=== PATIENT | male | born 1950 | race Caucasian/White ===

== ENCOUNTER → 2018-06-03 09:16 | Outpatient (CLI) | payer BC, SELFPAY ==
[2018-06-03 11:21] LABS: Abs Immature Grans 0.01 k/cumm (0.0-0.09); Absolute Basophil Count 0.04 k/cumm (0.0-0.2); Absolute Eosinophil Count 0.12 k/cumm (0.0-0.7); Absolute Monocyte Count 0.51 k/cumm (0.11-0.7); Absolute Neutrophil Count 1.89 k/cumm (1.2-6.7); Eosinophils % 2.9; Immature Grans % 0.2; Lymphocytes % 36.9; Mean Corp. HGB Concentration 34.1 g/dL (32.0-36.0); Mean Corpuscular Hemoglobin 31.8 pg (27.0-33.0); Mean Corpuscular Volume 93.4 fL (80-95); Mean Platelet Volume 9.8 fL (8.0-11.0); Monocytes % 12.5; Neutrophils % 46.5; Platelet Count 219 x1000/uL (130-400); RBC 4.71 m/cumm (4.50-6.00); RBC Distribution Width 13.3 % (11.8-14.1); White Blood Cell Count 4.07 k/cumm (4.4-10.8)
[2018-06-03 11:33] LABS: ALT 26 U/L (12-78); AST 20 U/L (15-37); Albumin 3.9 g/dL (3.4-5.0); Alkaline Phosphatase 44 U/L (46-116); Anion Gap 7.5 mmol/L (3-11); BUN 20 mg/dL (7-18); Bilirubin, Total 0.5 mg/dL (0.2-1.0); CO2 27.5 mmol/L (21.0-32.0); CREATININE 1.02 mg/dL (0.70-1.30); Calcium 9.3 mg/dL (8.5-10.1); Chloride 104 mmol/L (98-107); Glucose 93 mg/dL (70-100); Potassium 4.4 mmol/L (3.5-5.1); Sodium 139 mmol/L (136-145); Total Protein 7.1 g/dL (6.4-8.2)
== END ==
PROVIDERS: PCP Family Medicine; Visit Provider Internal Medicine
DX: D64.9 Anemia, unspecified (principal); R30.0 Dysuria; R35.0 Frequency of micturition
CPT/HCPCS: 36415; 80053; 84154; 85025; 87086

== ENCOUNTER 2018-06-19 09:52 | Emergency (ER) | payer BC, SELFPAY ==
[2018-06-19 10:08] VITALS: BP 98/63; PULSE 89; RESP 16; TEMP 37.1; O2SAT 94
[2018-06-19 10:36] LABS: Bilirubin Negative (Negative); Blood Negative (Negative); Clarity Clear; Glucose Negative (Negative); Ketones Negative (Negative); Leukocyte Esterase Negative (Negative); Nitrite Negative (Negative); Specific Gravity 1.015 (1.005-1.025); Urobilinogen 0.2 EU/dL (Up TO 0.2)
--- NOTE | 2018-06-19 11:07 | ED.GENADUL ---
Disposition Clinical Impression: Enlarged prostate, Bladder distension Disposition: HOME Condition: Fair Instructions: Benign Prostatic Hypertrophy (ED), Montesinos Catheter Placement and Care (ED) Additional Instructions: Encourage hydration. Keep catheter in until evaluated by urology. Please follow nursing instructions on how to clean and care for the catheter. Appointment 06/25/18 at 1pm with urology. If you develop fever/chills, increased pain, or the other new/worsening symptoms please seek care urgently once again. You may use Benadryl to help with the rash from Bactrim. Please discuss allergic reaction with primary care. Referrals: Abimael Hoffman MD [ [facility] STAFF PHYSICIAN] - Medical Decision Making - Lab Data Laboratory Tests 06/19/18 10:25 Urine Color Yellow Urine Clarity Clear Urine pH 7.0 Ur Specific [place] 1.015 Urine Protein Negative Urine Ketones Negative Urine Blood Negative Urine Nitrite Negative Urine Bilirubin Negative Urine Urobilinogen 0.2 Ur Leukocyte Esterase Negative Urine Glucose Negative Results reviewed for labs ordered during visit: Yes - Medical Decision Making Patient presents today with chief complaint of difficulty urinating. Nursing staff performed a bladder scan and found over 999 mL of urine in his bladder. On exam, he is noted to have an enlarged prostate. It is firm, no bogginess noted. No discomfort with palpation of the prostate. Patient is afebrile and appears nontoxic. He does have a diffuse erythematous rash on the abdomen which she reports was there when taking the Bactrim previously and recurred after the one-time dosing last night. Advised against taking Bactrim in the future. I did advise he needs to contact his primary care if he finds that he needs to stop medication prematurely in the future. Catheter will be placed. We discussed that he likely has a stretch injury and he needs to allow this to heal. Patient will be referred to urology. We will obtain a urinalysis to evaluate for infection. Discussed this plan with the patient who is in agreement. 1800 cc out with catheter placement. Patient is feeling much improved. Abdomen is no longer noted to be distended. Urinalysis is not suspicious for infection. Discussed these findings with the patient. Advised that secondary to his enlarged prostate he seems to have retained urine and has developed a stretch injury. Advised that he needs follow-up with urology. We were able to make an appointment with urology for next week. Nursing staff instructed on how to care for catheter. He was given both a [place] bag and a leg bag. We discussed signs symptoms of infection when to seek care urgently once again. All his questions and concerns were addressed and he is in agreement this plan. We discussed pathology and expected course. History of Present Illness - General Chief complaint: Urinary Stated complaint: PROSTRATE ISSUES/MEDS Time Seen by Provider: 06/19/18 11:07 Source: patient, family, RN notes reviewed Mode of arrival: ambulatory Limitations: no limitations - History of Present Illness Initial comments: Patient is 67-year-old male, accompanied by , with chief complaint of difficulty urinating. He reports that this is been a long-standing issue this progressively been worsening. Patient was seen by primary care recently and placed on Bactrim. He reports he had had a reaction to Bactrim including tingling, rash and just feeling poorly. Stopped Bactrim. Did not contact primary care. Reports has been approximately 1 week since stopping the Bactrim. He states that the daytime symptoms had improved slightly. However, nighttime dysuria, urgency and frequency have persisted. He feels that he has great difficulty with urination, particularly at night. Reports that even this morning however he has been having difficulty with urination. Feels that he is at times unable to urinate. States that other times he is able to get a very small amount. Feels that he is having some abdominal discomfort. Had a normal bowel movement last night with no discomfort. He denies any fevers. States that he has gotten chills but only after taking the Bactrim. Feels that this is drug related. Did vomit ?1 last night but again, this is shortly after taking oral Bactrim. Patient did take a one-time dose of the Bactrim last night and then developed recurrence of his previous symptoms. - Related Data Diclofenac Sodium 75 mg PO BID PRN #60 tab-cap 02/20/18 Allergies Allergy/AdvReac Type Severity Reaction Status Date / Time sulfamethoxazole AdvReac Intermediate Skin Rash Unverified 06/19/18 11:46 [From Bactrim] trimethoprim [From Bactrim] AdvReac Intermediate Skin Rash Unverified 06/19/18 11:46 Review of Systems Constitutional: no symptoms reported. denies: chills, fever Respiratory: no symptoms reported. denies: cough, shortness of breath Cardiovascular: denies: chest pain, palpitations Gastrointestinal: as per HPI Genitourinary: as per HPI Musculoskeletal: denies: back pain Skin: denies: rash, lesions Neurological: denies: headache Past Medical History - Past Medical History Medical history: no medical history - Social History Alcohol use: none Drug use: none General Exam - General Limitations: no limitations General appearance: alert, in no apparent distress - Eye Eye exam: Present: normal apperance - Respiratory Respiratory exam: Present: normal lung sounds bilaterally. Absent: respiratory distress - Cardiovascular Cardiovascular Exam: Present: regular rate, normal rhythm, normal heart sounds - GI/Abdominal GI/Abdominal exam: Present: soft, distended (lower abdomen is noted to be slightly distended, bladder is palpable. ), normal bowel sounds, organomegaly (as above). Absent: tenderness, guarding, rebound, rigid - Rectal Rectal exam: Present: normal inspection, normal rectal tone, heme (-) stool, hemorrhoids (exernal, noon thrombosed), prostate enlargement. Absent: mass, tenderness, normal prostate, prostate tenderness - exam: Present: normal inspection - Back Exam Back exam: Absent: CVA tenderness (R), CVA tenderness (L) - Neurological Exam Neurological exam: Present: alert, normal gait - Psychiatric Psychiatric exam: Present: normal affect, normal mood - Skin Skin exam: Present: warm, dry, intact Course Vital Signs - 24 hr 06/19/18 10:08 Temperature 37.1 C Pulse 89 Respiratory 16 Rate Blood Pressure 98/63 Pulse Oximetry 94 L
--- NOTE | 2018-06-19 11:13 | ED.GENADUL_ITS ---
Disposition Clinical Impression: Enlarged prostate, Bladder distension Disposition: HOME Condition: Fair Instructions: Benign Prostatic Hypertrophy (ED), Montesinos Catheter Placement and Care (ED) Additional Instructions: Encourage hydration. Keep catheter in until evaluated by urology. Please follow nursing instructions on how to clean and care for the catheter. Appointment 06/25/18 at 1pm with urology. If you develop fever/chills, increased pain, or the other new/worsening symptoms please seek care urgently once again. You may use Benadryl to help with the rash from Bactrim. Please discuss allergic reaction with primary care. Referrals: Abimael Hoffman MD [ [facility] STAFF PHYSICIAN] - Medical Decision Making - Lab Data Laboratory Tests 06/19/18 10:25 Urine Color Yellow Urine Clarity Clear Urine pH 7.0 Ur Specific [place] 1.015 Urine Protein Negative Urine Ketones Negative Urine Blood Negative Urine Nitrite Negative Urine Bilirubin Negative Urine Urobilinogen 0.2 Ur Leukocyte Esterase Negative Urine Glucose Negative Results reviewed for labs ordered during visit: Yes - Medical Decision Making Patient presents today with chief complaint of difficulty urinating. Nursing staff performed a bladder scan and found over 999 mL of urine in his bladder. On exam, he is noted to have an enlarged prostate. It is firm, no bogginess noted. No discomfort with palpation of the prostate. Patient is afebrile and appears nontoxic. He does have a diffuse erythematous rash on the abdomen which she reports was there when taking the Bactrim previously and recurred after the one-time dosing last night. Advised against taking Bactrim in the future. I did advise he needs to contact his primary care if he finds that he needs to stop medication prematurely in the future. Catheter will be placed. We discussed that he likely has a stretch injury and he needs to allow this to heal. Patient will be referred to urology. We will obtain a urinalysis to evaluate for infection. Discussed this plan with the patient who is in agreement. 1800 cc out with catheter placement. Patient is feeling much improved. Abdomen is no longer noted to be distended. Urinalysis is not suspicious for infection. Discussed these findings with the patient. Advised that secondary to his enlarged prostate he seems to have retained urine and has developed a stretch injury. Advised that he needs follow -up with urology. We were able to make an appointment with urology for next week. Nursing staff instructed on how to care for catheter. He was given both a [place] bag and a leg bag. We discussed signs symptoms of infection when to seek care urgently once again. All his questions and concerns were addressed and he is in agreement this plan. We discussed pathology and expected course. History of Present Illness - General Chief complaint: Urinary Stated complaint: PROSTRATE ISSUES/MEDS Time Seen by Provider: 06/19/18 11:07 Source: patient, family, RN notes reviewed Mode of arrival: ambulatory Limitations: no limitations - History of Present Illness Initial comments: Patient is 67-year-old male, accompanied by , with chief complaint of difficulty urinating. He reports that this is been a long-standing issue this progressively been worsening. Patient was seen by primary care recently and placed on Bactrim. He reports he had had a reaction to Bactrim including tingling, rash and just feeling poorly. Stopped Bactrim. Did not contact primary care. Reports has been approximately 1 week since stopping the Bactrim. He states that the daytime symptoms had improved slightly. However, nighttime dysuria, urgency and frequency have persisted. He feels that he has great difficulty with urination, particularly at night. Reports that even this morning however he has been having difficulty with urination. Feels that he is at times unable to urinate. States that other times he is able to get a very small amount. Feels that he is having some abdominal discomfort. Had a normal bowel movement last night with no discomfort. He denies any fevers. States that he has gotten chills but only after taking the Bactrim. Feels that this is drug related. Did vomit 1 last night but again, this is shortly after taking oral Bactrim. Patient did take a one-time dose of the Bactrim last night and then developed recurrence of his previous symptoms. - Related Data Diclofenac Sodium 75 mg PO BID PRN #60 tab-cap 02/20/18 Allergies Allergy/AdvReac Type Severity Reaction Status Date / Time sulfamethoxazole AdvReac Intermediate Skin Rash Unverified 06/19/18 11:46 [From Bactrim] trimethoprim [From Bactrim] AdvReac Intermediate Skin Rash Unverified 06/19/18 11:46 Review of Systems Constitutional: no symptoms reported. denies: chills, fever Respiratory: no symptoms reported. denies: cough, shortness of breath Cardiovascular: denies: chest pain, palpitations Gastrointestinal: as per HPI Genitourinary: as per HPI Musculoskeletal: denies: back pain Skin: denies: rash, lesions Neurological: denies: headache Past Medical History - Past Medical History Medical history: no medical history - Social History Alcohol use: none Drug use: none General Exam - General Limitations: no limitations General appearance: alert, in no apparent distress - Eye Eye exam: Present: normal apperance - Respiratory Respiratory exam: Present: normal lung sounds bilaterally. Absent: respiratory distress - Cardiovascular Cardiovascular Exam: Present: regular rate, normal rhythm, normal heart sounds - GI/Abdominal GI/Abdominal exam: Present: soft, distended (lower abdomen is noted to be slightly distended, bladder is palpable. ), normal bowel sounds, organomegaly ( as above). Absent: tenderness, guarding, rebound, rigid - Rectal Rectal exam: Present: normal inspection, normal rectal tone, heme (-) stool, hemorrhoids (exernal, noon thrombosed), prostate enlargement. Absent: mass, tenderness, normal prostate, prostate tenderness - exam: Present: normal inspection - Back Exam Back exam: Absent: CVA tenderness (R), CVA tenderness (L) - Neurological Exam Neurological exam: Present: alert, normal gait - Psychiatric Psychiatric exam: Present: normal affect, normal mood - Skin Skin exam: Present: warm, dry, intact Course Vital Signs - 24 hr 06/19/18 10:08 Temperature 37.1 C Pulse 89 Respiratory 16 Rate Blood Pressure 98/63 Pulse Oximetry 94 L
[2018-06-19 12:05] VITALS: BP 95/53; PULSE 86; RESP 14; TEMP 36.5; O2SAT 98
== END 2018-06-19 12:06 | disposition home or self-care (01) ==
PROVIDERS: Emergency Provider Physician Assistant; PCP Family Medicine
DX: N40.1 Benign prostatic hyperplasia with lower urinary tract symptoms (principal); R35.0 Frequency of micturition; R39.15 Urgency of urination; R30.0 Dysuria; N32.89 Other specified disorders of bladder
CPT/HCPCS: 99282; 81003

== ENCOUNTER 2019-03-05 08:51 | Outpatient (CLI) | payer OTHER, MEDICARE, SELFPAY ==
[2019-03-05 11:30] LABS: Anion Gap 4.3 mmol/L (3-11); BUN 15 mg/dL (7-18); CO2 31.7 mmol/L (21.0-32.0); CREATININE 0.98 mg/dL (0.70-1.30); Chloride 104 mmol/L (98-107); Cholesterol 184 mg/dL (50-200); Glucose 96 mg/dL (70-100); HDL Cholesterol 64 mg/dL (40-60); LDL CHOLESTEROL 111 mg/dL (<100); Potassium 5.2 mmol/L (3.5-5.1); Sodium 140 mmol/L (136-145); Triglyceride 28 mg/dL (30-150)
[2019-03-06 10:12] LABS: PSA, Screening 1.6 ng/ml (0-4.5)
== END 2019-03-05 09:11 ==
PROVIDERS: PCP Family Medicine; Visit Provider Family Medicine
DX: Z00.00 Encounter for general adult medical examination without abnormal findings (principal); Z13.220 Encounter for screening for lipoid disorders; Z12.5 Encounter for screening for malignant neoplasm of prostate
CPT/HCPCS: 36415; 80048; 80061; 83721; 84153

== ENCOUNTER 2019-03-13 02:08 | Outpatient (CLI) | payer OTHER, MEDICARE, SELFPAY ==
[2019-03-13 08:23] LABS: Potassium 5.1 mmol/L (3.5-5.1)
== END 2019-03-13 02:28 ==
PROVIDERS: PCP Family Medicine; Visit Provider Family Medicine
DX: E87.5 Hyperkalemia (principal)
CPT/HCPCS: 36415; 84132

== ENCOUNTER 2019-06-16 07:06 | Day surgery (SDC) | payer OTHER, SELFPAY ==
--- NOTE | 2019-06-16 06:42 | W.COLOREPORT ---
Date of service: 06/16/19 Time of Service: 08:20 Colonoscopy Report Date of procedure: 06/16/19 Pre-op diagnosis general: Colon Cancer Screening Post-op diagnosis procedure note: other (Severe diverticulosis) Procedure: Colonoscopy Surgeon: Ashia Dsouza Anesthesia proc note operative: other (General/ ASA 2/ Edward Iqbal CRNA) Estimated blood loss (mL): 0 Pathology: none sent Complications: None Disposition: same day Indications: Mr. Panda is a pleasant 68-year-old gentleman who was seen in the office for a screening colonoscopy. His last colonoscopy was in 2008 and was normal. Risks, benefits and complications have been reviewed. Complications include but are not limited to bleeding, pain, perforation, missed small lesion/polyp, sore throat, aspiration and adverse reaction to the medications. Questions were entertained and answered to their satisfaction and they wished to proceed. No guarantees were given or implied. Prep: Miralax/Dulcolax Procedure Start Time: 08:20 Procedure End Time: 08:46 Retraction Time: 14 minutes Findings: Severe diverticulosis of the descending and sigmoid colon Procedure Description: After informed consent was obtained the patient was taken to the procedure room and placed in a left decubitous position. Monitors were applied and a time out was done. The patients name, date of , procedure, allergies to medications and metal in their body was reviewed. The patient was then sedated. Once sedated and comfortable a rectal exam was done. External exam was normal. Internal exam revealed a normal sphincter tone and no palpable masses. The prostate felt smooth. The scope was then introduced and retro-flexed. No internal hemorrhoids, masses or polyps were identified. The scope was then advanced to the cecum with difficulty due to there number of diverticula throughout the descending and sigmoid colon. The TI and appendiceal orifice were identified. The prep was good. The scope was then slowly retracted over 14 minutes back into the rectum. The scope was removed and the patient was woken up and taken back to Same day surgery in stable condition. The patient tolerated the procedure well and there were no immediate complications. Follow up: The patient should follow up in 10 years unless they develop changes in bowel habits or other new gastrointestinal complaints.
--- NOTE | 2019-06-16 06:44 | W.PM.DSUDISC ---
Discharge Plan Disposition Patient Disposition: HOME Condition: Good Discharge Details Reason For Visit: Colon Cancer Screening Attending Provider: Ashia Dsouza Primary Care Provider: Carroll Restrepo Home Meds and New Rx's Prescriptions: Continued diclofenac sodium 75 mg tablet,delayed release (DR/EC) 75 mg PO BID PRN RF: 0 tamsulosin 0.4 mg capsule 0.4 mg PO DAILY Qty: 90 RF: 3 Discontinued bisacodyl [Dulcolax (bisacodyl)] 5 mg tablet,delayed release (DR/EC) 5 mg PO ONCE Qty: 4 RF: 0 polyethylene glycol 3350 17 gram/dose powder 238 g PO ONCE Qty: 238 RF: 0 Discharge Instructions Instructions: Colonoscopy (GEN), Diverticulosis (ED) Additional Instructions: Findings: severe Diverticulosis Follow up: 10 years Please call if you develop: fevers >101.5 Nausea or Vomiting Abdominal pain that is not transient DAY SURGERY UNIT POST COLONOSCOPY INSTRUCTIONS 1. Because there will be medication in your system for the next 24 hours, you may feel a little sleepy. Your coordination will be affected. Therefore: a. Do not drive or operate dangerous equipment for 24 hours. b. Do not drink alcohol beverages for 24 hours (not even beer). c. Plan to go home and rest for the day. 2. Generally there are no restrictions on your activity after a day or so has gone by, but you may feel a bit fatigued for a few days. 3 After you arrive home you may have a light meal and return to a normal diet as you can tolerate it without feeling sick to your stomach. 4. After surgery, you may feel pain or discomfort. This should be only transient, but if it persists please contact your doctor. 5. If there are any questions regarding the findings of your procedure, please feel free to contact your doctor. 6. If you are unable to contact your doctor with a problem, contact the hospital at [phone]. 7. Continue all your regular medications unless directed otherwise. I understand the above instructions and have no questions. Signature of Patient or Responsible Adult Escort Date/Time Name of Responsible Adult Escort Signature of Nurse Date/Time Activity:: Activity as Tolerated Diet:: High Fiber diet Discharge Orders Discharge Orders: Discharge Order (Routine); Ordered 06/16/19 Ordered By: Ashia Dsouza DS: Diagnosis Discharge Diagnosis (1) History of colonoscopy: Status: Chronic (2) Diverticulosis large intestine w/o perforation or abscess w/o bleeding: Status: Acute
[2019-06-16 07:20] VITALS: BP 118/84; PULSE 73; RESP 18; TEMP 35.9; O2SAT 73
[2019-06-16] MEDS: Lactated Ringers 1,000 ML 80 ML IV (07:39)
[2019-06-16 09:20] VITALS: BP 111/71; PULSE 59; RESP 18; TEMP 36.2; O2SAT 96
== END 2019-06-16 09:40 | disposition home or self-care (01) ==
LOC: SUR 07:07
PROVIDERS: PCP Family Medicine; Visit Provider Surgery
PROC: 0DJD8ZZ Inspection of Lower Intestinal Tract, Via Natural or Artificial Opening Endoscopic (ICD-10-PCS; CPT 45378; principal; 2019-06-16 08:30)
DX: Z12.11 Encounter for screening for malignant neoplasm of colon (principal); K57.30 Diverticulosis of large intestine without perforation or abscess without bleeding
CPT/HCPCS: 45378

== ENCOUNTER 2019-12-13 01:51 | Outpatient (CLI) | payer OTHER, SELFPAY ==
[2019-12-13 11:39] LABS: Anion Gap 7.6 mmol/L (3-11); BUN 20 mg/dL (7-18); CO2 29.4 mmol/L (21.0-32.0); CREATININE 1.01 mg/dL (0.70-1.30); Calcium 9.1 mg/dL (8.5-10.1); Chloride 106 mmol/L (98-107); Glucose 72 mg/dL (74-106); Potassium 4.6 mmol/L (3.5-5.1); Sodium 143 mmol/L (136-145)
== END 2019-12-13 02:11 ==
PROVIDERS: PCP Family Medicine; Visit Provider Nurse Practitioner Gerontology
DX: N40.1 Benign prostatic hyperplasia with lower urinary tract symptoms (principal); N13.8 Other obstructive and reflux uropathy
CPT/HCPCS: 36415; 80048

== ENCOUNTER 2019-12-16 02:05 | Outpatient (CLI) | payer OTHER, SELFPAY ==
--- NOTE | 2019-12-16 15:30 | DI.US_ITS ---
EXAM: US RENAL CLINICAL HISTORY: Continued high PVR checking for hydro,n40.1,r33.8,urinary retention, benign. TECHNIQUE: Elliott scale, color and spectral Doppler were used. COMPARISON: No exams were available for comparison FINDINGS: Renal size in cm: Right: 11.3 left: 11 Echogenicity: Normal Hydronephrosis: Mild bilateral hydronephrosis. Cyst or mass: 2.4 x 1.9 x 2.2 cm simple cyst in the left kidney. 1.2 x 1.1 x 1.1 cm simple cyst in t he left kidney. Nephrolithiasis: No Other findings: Prostate gland is enlarged with a volume of 59 cc. Bladder: The bladder wall appears smooth. No intraluminal mass is present. Both ureteral jets were visualized. Prevoid vol:1693 cc Postvoid vol:900 cc DOPPLER FINDINGS: Normal and symmetric blood flow to the kidneys. IMPRESSION: 1. Enlarged prostate gland. 2. Large postvoid urinary bladder volume. 3. Left renal cysts. 4. Mild bilateral hydronephrosis.
== END 2019-12-16 02:25 ==
PROVIDERS: PCP Family Medicine; Visit Provider Nurse Practitioner Gerontology
DX: R33.8 Other retention of urine (principal); N40.1 Benign prostatic hyperplasia with lower urinary tract symptoms; N28.1 Cyst of kidney, acquired; N13.30 Unspecified hydronephrosis
CPT/HCPCS: 76770

== ENCOUNTER 2020-01-01 08:15 | Inpatient (IN) | payer OTHER, MEDICARE, SELFPAY ==
[2020-01-01] VITALS (15 sets, daily range): BP systolic 90–136; BP diastolic 56–96; PULSE 45–70; RESP 11–22; TEMP 35.4–36.5; O2SAT 94–99
[2020-01-01] MEDS: Lactated Ringers 1,000 ML 80 ML IV ×3 (08:43→23:54)
--- NOTE | 2020-01-01 09:19 | W.PM.HP.N ---
Date of service: 01/01/20 Time of Service: 09:19 Assessment and Plan Assessment and plan (1) Urinary retention due to benign prostatic hyperplasia: Status: Acute Assessment and plan: We will move ahead with cystoscopy and transurethral resection of his prostate. We discussed potential side effects including bleeding, infection, urethral stricture/bladder neck contracture, unmasking of urinary frequency and urgency as well as retrograde ejaculation. We will plan to keep him in the hospital with continuous bladder irrigation overnight. History of Present Illness History of Present Illness Chief Complaint: Urinary retention Narrative: This is a 69-year-old gentleman who has a history of BPH with lower urinary tract symptoms. At one point, he went into retention. His symptoms initially improved with an alpha-kristopher. More recently, in spite of maximal alpha-kristopher therapy, he was found to have bilateral hydronephrosis and a residual urine of close to a liter. He was started on intermittent catheterization and he presents now for transurethral resection of the prostate. He is not having any dysuria or gross hematuria. He has no flank pain. Review of Systems Narrative: No fevers or chills No vision change or dysphasia No diabetes or thyroid dysfunction No shortness of breath, cough or hemoptysis No chest pain or palpitations No nausea, vomiting, hepatitis, ulcers, jaundice, diarrhea or constipation No seizures, strokes or peripheral neuropathy No bleeding disorders or anemia No gout or PFSH Social History Smoking/Tobacco Use Status: Never Second Hand Exposure: No Alcohol Intake: current Alcohol Intake frequency: holidays/special occasions only Alcohol type: beer Drug use: Never Substance use type: does not use Household members: spouse and children Housing: house Communication Needs: None Do you need help understanding health information?: Often current occupation: [employer] Pets and animals: Yes Pets and animals: cat(s) Sexually active: No Do you think of yourself as: straight/heterosexual Current gender identity: male What is your relationship status?: How often do you talk on the phone with friends or family?: once per week How often do you get together with friends or relatives?: decline to answer How often do you attend taoist or mu-ism services?: decline to answer Do you belong to any clubs or organized social groups?: yes Panel score (0-1 are the most socially isolated patients): 2 What type of physical activity do you participate in: walking Duration: > 90 minutes/day Frequency: daily Vero/Congregation: [employer] Special vero needs: No Seatbelt use: always Helmet use: Yes Helmet use: always Drive 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 Do you feel safe at home: Yes Do you feel safe in your relationship?: Yes Meds Home Medications and Allergies Home Medications Medication Instructions Recorded Confirmed Type diclofenac sodium 75 mg 75 mg PO BID PRN tab 02/28/19 12/29/19 History tablet,delayed release tamsulosin 0.4 mg capsule 0.8 mg PO DAILY #180 cap 07/09/19 01/01/20 Rx acetaminophen 1,000 mg PO PRN PRN 12/29/19 12/29/19 History Allergies Allergy/AdvReac Type Severity Reaction Status Date / Time sulfamethoxazole AdvReac Intermediate Skin Rash Verified 01/01/20 08:29 [From Bactrim] trimethoprim [From Bactrim] AdvReac Intermediate Skin Rash Verified 01/01/20 08:29 Exam Const General: cooperative, healthy appearing and comfortable Neck Neck: supple Resp Effort & Inspection: normal respiratory effort Auscultation: clear to auscultation bilaterally Cardio Rate: regular rate Rhythm: regular rhythm GI Palpation: soft and no masses Neuro General: alert, awake and oriented x3 Results Last Vital Signs Temp 36.5 C 01/01/20 08:44 Pulse 58 L 01/01/20 08:44 Resp 18 01/01/20 08:44 BP 112/70 01/01/20 08:44 Pulse Ox 97 01/01/20 08:44
[2020-01-01] MEDS: ceFAZolin 2 GM/50 ML BAG IVPB (10:39)
--- NOTE | 2020-01-01 11:30 | PROST_PTH ---
PATIENT: Chau Panda LOC: U#:[id number] AGE/SX: 69/M ROOM: 205 RE01/01/[address]: Abimael Hoffman MD : [id number] BED: B DIS: 01/02/2020 SPEC #: [id number] RECD: 01/01/20 12:37 STATUS: SOUT REQ #: [id number] DAVIN: 01/01/20 11:[address]: Abimael Hoffman DEPT: Surgical Specimen RECD BY: Jenni Kinsey ENTERED: 01/01/20 12:38 SP TYPE: PROST OTHR DR: Carroll Restrepo MD Tissues: 1 - PROSTATE CURRETTINGS Procedures: GROSS AND MICRO LEVEL 4 Comments: [id number]
--- NOTE | 2020-01-01 12:43 | ROE_ITS ---
DATE: JANUARY 01, 2020 Preoperative Diagnosis: Urinary retention Postoperative Diagnosis: Same with pathology pending Operation: Cystoscopy, transurethral resection of prostate, vaporization of prostate. Anesthesia: Spinal Surgeon: Abimael Hoffman M.D. Complications: None History: This is a 69 year-old gentleman who has a history of lower urinary tract symptoms. His symptoms progressed to the point where he was not emptying his bladder and had bilateral hydronephrosis on ultrasound. He began performing intermittent catheterizations. He has already failed maximal alpha - kristopher therapy. He presents now for transurethral resection of the prostate. Procedure: The patient was brought to the Operating Room on 01/01/20. After successful induction of spinal anesthesia he was placed in the dorsal lithotomy position. His genitalia were prepped and draped sterilely. A #24 Bhutanese resectoscope sheath was passed through the urethra into the bladder. We used the visual obturator to inspect the urethra and bladder. The pendulous, bulbous and membranous urethra all appeared normal with no strictures. The prostatic urethra showed some mild lateral lobe enlargement but mostly showed anterior tissue and an elevated bladder neck. The bladder neck was then entered and the bladder mucosa was inspected. The bladder was just minimally trabeculated with no diverticula or cellules seen. No stones were seen. Urine was seen coming from both ureteral orifices. We then utilized bipolar cautery to perform transurethral resection of the prostate from the bladder neck out to the verumontanum. The depth of the resection was down to the prostatic capsule. All resected tissue was evacuated and sent to pathology for permanent section. Any bleeding points were cauterized using a combination of coagulation on the resectoscope loop and the plasma button. At the completion of the procedure the prostatic urethra appeared wide open. The bladder was filled with irrigant. The resectoscope was removed. A #22 Bhutanese hematuria catheter was then passed through the urethra into the bladder. The catheter balloon was inflated with 30 cc. of sterile water. Continuous bladder irrigation was begun using saline. Traction was placed on the catheter balloon until the irrigant became clear. The patient tolerated this procedure well with no complications. He was taken to the Recovery Room in stable condition. A Belladonna and opium suppository was placed rectally prior to his leaving the Operating Room.
--- NOTE | 2020-01-01 13:27 | NUR.NOTE ---
Nursing Note:Pt arrived from PACU. transferred to bed via slide board. A&Ox3. VSS, see worklist. Pt denies pain and nausea. CBI running. Pt had spinal, no sensation at this time. bed alarms on. oriented to room and call system.
[2020-01-01] MEDS: ceFAZolin 1 GM/50 ML BAG IVPB ×2 (16:36→23:44)
[2020-01-01] MEDS: Docusate Sodium 100 MG CAP PO (19:43)
[2020-01-01] MEDS: Acetaminophen 325 MG TAB 650 MG PO (21:23)
[2020-01-02] MEDS: Acetaminophen 325 MG TAB 650 MG PO (03:55)
[2020-01-02 06:45] LABS: HGB 14.9 g/dL (13.5-17.5); Mean Corp. HGB Concentration 33.9 g/dL (32.0-36.0); Mean Corpuscular Hemoglobin 31.4 pg (27.0-33.0); Mean Corpuscular Volume 92.8 fL (80-95); Mean Platelet Volume 9.3 fL (8.0-11.0); Platelet Count 280 x1000/uL (130-400); RBC 4.74 m/cumm (4.50-6.00); RBC Distribution Width 13.8 % (11.8-14.1); White Blood Cell Count 10.79 k/cumm (4.4-10.8)
[2020-01-02 06:49] VITALS: BP 118/78; PULSE 58; RESP 16; TEMP 36.4; O2SAT 99
[2020-01-02 06:54] LABS: Anion Gap 7.4 mmol/L (3-11); BUN 15 mg/dL (7-18); CO2 28.6 mmol/L (21.0-32.0); CREATININE 0.98 mg/dL (0.70-1.30); Calcium 9.2 mg/dL (8.5-10.1); Chloride 105 mmol/L (98-107); Glucose 117 mg/dL (74-106); Potassium 4.2 mmol/L (3.5-5.1); Sodium 141 mmol/L (136-145)
--- NOTE | 2020-01-02 07:10 | DSE_ITS ---
Date of service: 01/02/20 Time of Service: 07:10 DS: Diagnosis Discharge Diagnosis (1) Urinary retention due to benign prostatic hyperplasia: Status: Acute Discharge Plan Disposition Patient Disposition: HOME Condition: Stable Discharge Details Reason For Visit: URINARY RETENTION Admit Date/Time: 01/01/20 08:15 Admit Provider: Abimael Hoffman Attending Provider: Abimael Hoffman Primary Care Provider: Carroll Restrepo Hospital Course Hospital Course: The patient presented for an elective transurethral resection of the prostate. The surgery was accomplished on 01/01/2020. He remained in the hospital overnight for continuous bladder irrigation. On postoperative day #1, the irrigant was clear. He was tolerating oral medications. He was having no significant pain. We discontinued his bladder irrigation and will discharge him with his catheter in place. He will follow-up early next week to have his catheter removed. Home Meds and New Rx's Prescriptions: No Action diclofenac sodium 75 mg tablet,delayed release (DR/EC) 75 mg PO BID PRN RF: 0 tamsulosin 0.4 mg capsule 0.8 mg PO DAILY Qty: 180 RF: 3 acetaminophen 500 mg Tablet 1,000 mg PO PRN PRNRF: 0 Discharge Instructions Additional Instructions: Catheter to leg bag during the day and large drainage bag at night-please instruct the patient in the use of these bags Follow-up early next week for catheter removal Follow-up with provider in 1 to 2 weeks to review surgical pathology Okay to drive Okay to shower Okay to resume all home medications No prescriptions needed Activity:: No straining/lifting over 10 to 20 pounds for 2 weeks Equipment/Supplies:: Odell to drainage bag Diet:: As Tolerated Discharge Orders Discharge Orders: Discharge Order (Routine); Ordered 01/02/20 Ordered By: Abimael Hoffman DS: Summary Status at Discharge Functional status at discharge: independent ambulation Overall status at discharge: patient is back to baseline Mental Status: mental status grossly normal Speech and Movement: speech and movement normal Mood: congruent mood Affect: normal affect Exam Narrative Exam Narrative: At the time of discharge, he looks well. He does not appear septic or toxic. His vital signs are documented elsewhere He does not appear short of breath. His lungs are clear Cardiac exam shows a regular rate and rhythm His abdomen is soft with no peritoneal signs A Odell catheter is in place and is draining clear urine He is awake and alert His surgical pathology is not yet available Psych Mental Status: mental status grossly normal Speech and Movement: speech and movement normal Mood: congruent mood Affect: normal affect DS: Data Vitals/I&O Vitals and I&O: Vital Signs Temperature 36.4 C L 01/02/20 06:49 Temperature Source Temporal Artery Scan 01/02/20 06:49 Pulse 58 L 01/02/20 06:49 Pulse Rhythm Irregular 01/02/20 03:55 Respiratory Rate 16 01/02/20 06:49 Respiratory Effort 01/02/20 03:55 Respiratory Depth Normal 01/02/20 03:55 Respiratory Pattern Normal 01/02/20 03:55 Blood Pressure 118/78 01/02/20 06:49 Pulse Oximetry 99 01/02/20 06:49 Respiratory End-tidal CO2 30 01/01/20 12:38 Oxygen Delivery Method Room Air 01/02/20 06:49 Oxygen Flow Rate 0 01/02/20 06:49 Pain Level 0 01/02/20 06:49 Intake & Output 01/01/20 01/01/20 01/02/20 11:59 23:59 11:59 Intake Total 50 / 2650.667 2600.667 / 2650.667 Balance 50 / 2650.667 2600.667 / 2650.667 Weight 76 kg Intake: IV 50 / 7797.938 1902.667 / 1970.667 Oral 680 / 680 Other: Urine Color [place] Urine Appearance Clear Hematuria Clear Hematuria Urine Odor None Comment [address] ODELL IRRIGATING BLADDER ON [address] WAY CBI POST TURP AND U/O IN PINK. Emesis Description None Data Completed and Pending Labs on day of discharge: Labs from last 24 hours 01/02/20 01/02/20 06:10 06:10 WBC 10.79 RBC 4.74 Hgb 14.9 Hct 44.0 MCV 92.8 MCH 31.4 MCHC 33.9 RDW 13.8 Plt Count 280 MPV 9.3 Sodium 141 Potassium 4.2 Chloride 105 Carbon Dioxide 28.6 Anion Gap 7.4 BUN 15 Creatinine 0.98 Estimated GFR/1.73 m2 >= 60.00 Glucose 117 H Calcium 9.2 PFSH Medical History Diverticulosis large intestine w/o perforation or abscess w/o bleeding (Acute) Enlarged prostate (Acute) Surgical History History of colonoscopy (Chronic) 2009-normal History of hernia repair (Chronic) Family History Mother , 87 Hyperlipidemia Stroke Father Heart disease Maternal Grandfather , 59 No problems noted. Paternal Grandfather , 77 Heart disease Maternal Grandmother , 47 No problems noted. Paternal Grandmother , 84 Heart disease Family history Heart disease COUSIN,UNCLE,AUNT Daughter Stroke Social History Smoking/Tobacco Use Status: Never Second Hand Exposure: No Alcohol Intake: current Alcohol Intake frequency: holidays/special occasions only Alcohol type: beer Drug use: Never Substance use type: does not use Household members: spouse and children Housing: house Communication Needs: None Do you need help understanding health information?: Often current occupation: [employer] Pets and animals: Yes Pets and animals: cat(s) Sexually active: No Do you think of yourself as: straight/heterosexual Current gender identity: male What is your relationship status?: How often do you talk on the phone with friends or family?: once per week How often do you get together with friends or relatives?: decline to answer How often do you attend taoist or methodist services?: decline to answer Do you belong to any clubs or organized social groups?: yes Panel score (0-1 are the most socially isolated patients): 2 What type of physical activity do you participate in: walking Duration: > 90 minutes/day Frequency: daily Vero/Restorationism: christiani Special vero needs: No Seatbelt use: always Helmet use: Yes Helmet use: always Drive intox or ride w/intox auto parts delivery driver: No Do you feel safe at home: Yes Do you feel safe in your relationship?: Yes
--- NOTE | 2020-01-02 07:17 | PGE_ITS ---
Date of Service Date of service: 01/02/20 Time of Service: 07:17 Assessment and Plan Assessment and plan (1) Urinary retention due to benign prostatic hyperplasia: Status: Acute Assessment and plan: We would discontinue his bladder irrigation and discharge him to home with a Odell catheter in place. He will need 2 appointments at my office. The first will be early next week just to have his catheter removed. We will asked the patient to remain on his tamsulosin until the catheter is removed and we are sure that he is able to void. After that, we can discontinue the tamsulosin His second appointment will be in 1 to 2 weeks. At that point, we should be able to review his surgical pathology which is still pending at this time. Subjective Subjective Interval history since last seen: Chief complaint: Postoperative day #1 This is a 69-year-old gentleman who underwent transurethral resection of the prostate yesterday. He remained in the hospital overnight for bladder irrigation He had no episodes of catheter occlusion. He has no abdominal or pelvic pain, b ut tells me his back is sore from lying in bed for an extended period of time Exam Narrative Exam Narrative: He is afebrile His abdomen is soft His bladder irrigation is clear His labs are stable Objective Objective Clinical Data: Abnormal lab results 01/02/20 Range/Units 06:10 Glucose 117 H (74-106) mg/dL Vital Signs Temperature 36.4 C L 01/02/20 06:49 Temperature Source Temporal Artery Scan 01/02/20 06:49 Pulse 58 L 01/02/20 06:49 Pulse Rhythm Irregular 01/02/20 03:55 Respiratory Rate 16 01/02/20 06:49 Respiratory Effort 01/02/20 03:55 Respiratory Depth Normal 01/02/20 03:55 Respiratory Pattern Normal 01/02/20 03:55 Blood Pressure 118/78 01/02/20 06:49 Pulse Oximetry 99 01/02/20 06:49 Respiratory End-tidal CO2 30 01/01/20 12:38 Oxygen Delivery Method Room Air 01/02/20 06:49 Oxygen Flow Rate 0 01/02/20 06:49 Pain Level 0 01/02/20 06:49 Intake & Output 01/01/20 01/01/20 01/02/20 11:59 23:59 11:59 Intake Total 50 / 2650.667 2600.667 / 2650.667 Balance 50 / 265.667 2600.667 / 2650.667 Weight 76 kg Intake: IV 50 19694379.026 0961.66 / 1969. Oral 680 / 680 Other: Urine Color [place] Urine Appearance Clear Hematuria Clear Hematuria Urine Odor None Comment [address] WAY ODELL IRRIGATING BLADDER ON [address] WAY CBI POST TURP AND U/O IN PINK. Emesis Description None Laboratory Results WBC 10.79 k/cumm (4.4-10.8) 01/02/20 06:10 RBC 4.74 m/cumm (4.50-6.00) 01/02/20 06:10 Hgb 14.9 g/dL (13.5-17.5) 01/02/20 06:10 Hct 44.0 % (40.0-50.0) 01/02/20 06:10 MCV 92.8 fL (80-95) 01/02/20 06:10 MCH 31.4 pg (27.0-33.0) 01/02/20 06:10 MCHC 33.9 g/dL (32.0-36.0) 01/02/20 06:10 RDW 13.8 % (11.8-14.1) 01/02/20 06:10 Plt Count 280 x1000/uL (130-400) 01/02/20 06:10 MPV 9.3 fL (8.0-11.0) 01/02/20 06:10 Sodium 141 mmol/L (136-145) 01/02/20 06:10 Potassium 4.2 mmol/L (3.5-5.1) 01/02/20 06:10 Chloride 105 mmol/L (98-107) 01/02/20 06:10 Carbon Dioxide 28.6 mmol/L (21.0-32.0) 01/02/20 06:10 Anion Gap 7.4 mmol/L (3-11) 01/02/20 06:10 BUN 15 mg/dL (7-18) 01/02/20 06:10 Creatinine 0.98 mg/dL (0.70-1.30) 01/02/20 06:10 Estimated GFR/1.73 m2 >= 60.00 (mL/min/1.73m2) 01/02/20 06:10 Glucose 117 mg/dL (74-106) H 01/02/20 06:10 Calcium 9.2 mg/dL (8.5-10.1) 01/02/20 06:10
[2020-01-02] MEDS: Normal Saline Flush 10 ML SYR IV (07:34)
[2020-01-02] MEDS: Docusate Sodium 100 MG CAP PO (09:00)
== END 2020-01-02 10:20 | disposition home or self-care (01) | DRG 713 ==
LOC: PDS 08:16 → MS 14:39
PROVIDERS: Admitting Provider Urology; PCP Family Medicine; Visit Provider Urology
PROC: 0VT08ZZ Resection of Prostate, Via Natural or Artificial Opening Endoscopic (ICD-10-PCS; CPT 52601; principal; 2020-01-01 10:30)
DX: C61 Malignant neoplasm of prostate (principal); N41.0 Acute prostatitis; N40.1 Benign prostatic hyperplasia with lower urinary tract symptoms; R33.8 Other retention of urine; N41.1 Chronic prostatitis; N34.2 Other urethritis
CPT/HCPCS: 52601; 36415; 80048; 85027; 88305; NC; J0690; J1100; J2001; J2250; J2405

== ENCOUNTER 2020-03-10 03:21 | Outpatient (CLI) | payer OTHER, SELFPAY ==
[2020-03-10 08:38] LABS: Calculated LDL 141 mg/dL (<100); Cholesterol 218 mg/dL (<200); Glucose 91 mg/dL (74-106); HDL Cholesterol 68 mg/dL (40-60); Triglyceride 47 mg/dL (<150)
[2020-03-11 08:33] LABS: PSA, Diagnostic 2.2 ng/mL (0.0-4.5)
== END 2020-03-10 03:41 ==
PROVIDERS: PCP Family Medicine; Visit Provider Family Medicine
DX: E78.5 Hyperlipidemia, unspecified (principal); R73.9 Hyperglycemia, unspecified; C61 Malignant neoplasm of prostate
CPT/HCPCS: 36415; 80061; 82947; 84153

== ENCOUNTER 2020-09-20 04:15 | Outpatient (CLI) | payer OTHER, SELFPAY ==
[2020-09-29 12:11] LABS: PSA, Diagnostic 1.7 ng/ml (0-4.5)
== END 2020-09-20 04:35 ==
PROVIDERS: PCP Family Medicine; Visit Provider Nurse Practitioner Gerontology
DX: C61 Malignant neoplasm of prostate (principal)
CPT/HCPCS: 36415; 84153

== ENCOUNTER 2021-03-29 02:48 | Outpatient (CLI) | payer OTHER, SELFPAY ==
[2021-03-29 17:18] LABS: PSA, Diagnostic 1.9 ng/mL (0.0-4.5)
== END 2021-03-29 02:49 | disposition home or self-care (01) ==
LOC: LOS 02:49
PROVIDERS: PCP Family Medicine; Visit Provider Nurse Practitioner Gerontology
DX: C61 Malignant neoplasm of prostate (principal)
CPT/HCPCS: 36415; 84153

== ENCOUNTER 2021-10-03 03:14 | Outpatient (CLI) | payer OTHER, SELFPAY ==
[2023-10-11 16:35] LABS: PSA, Diagnostic 1.9 ng/ml (0-4.5)
== END 2021-10-03 03:15 | disposition home or self-care (01) ==
LOC: LBO 03:14
PROVIDERS: PCP Family Medicine; Visit Provider Nurse Practitioner Gerontology
DX: C61 Malignant neoplasm of prostate (principal)
CPT/HCPCS: 36415; 84153

== ENCOUNTER 2022-04-06 02:22 | Outpatient (CLI) | payer BC, SELFPAY ==
[2022-04-06 08:20] LABS: Calculated LDL 133 mg/dL (<100); Cholesterol 210 mg/dL (<200); HDL Cholesterol 72 mg/dL (40-60); Triglyceride 26 mg/dL (<150)
[2022-04-06 18:21] LABS: PSA, Diagnostic 1.9 ng/mL (<=6.5)
== END 2022-04-06 02:23 | disposition home or self-care (01) ==
LOC: LBO 02:22
PROVIDERS: PCP Family Medicine; Visit Provider Nurse Practitioner Gerontology
DX: C61 Malignant neoplasm of prostate (principal); E78.5 Hyperlipidemia, unspecified
CPT/HCPCS: 36415; 80061; 84153

== ENCOUNTER 2022-10-04 03:41 | Outpatient (CLI) | payer MEDICARE, SELFPAY | END 2022-10-04 03:42 | disposition home or self-care (01) | LOC: LBO 03:41 | PROVIDERS: PCP Family Medicine; Visit Provider Nurse Practitioner Gerontology | DX: C61 Malignant neoplasm of prostate (principal) | CPT/HCPCS: 36415; 84153 ==

== ENCOUNTER → 2022-10-11 12:40 | Outpatient (BNVA) | payer MEDICARE, SELFPAY | PROVIDERS: PCP Family Medicine; Referring Provider Family Medicine; Visit Provider Nurse Practitioner Gerontology | DX: C61 Malignant neoplasm of prostate (principal); N40.1 Benign prostatic hyperplasia with lower urinary tract symptoms; R33.8 Other retention of urine | CPT/HCPCS: 99214 ==

== ENCOUNTER 2023-04-04 04:00 | Outpatient (CLI) | payer MEDICARE, SELFPAY ==
[2023-04-04 08:09] LABS: Calculated LDL 137 mg/dL (<100); Cholesterol 207 mg/dL (<200); Glucose 96 mg/dL (74-106); HDL Cholesterol 65 mg/dL (40-60); Triglyceride 27 mg/dL (<150)
[2023-04-04 18:27] LABS: PSA, Diagnostic 1.4 ng/mL (<=6.5)
== END 2023-04-04 04:01 | disposition home or self-care (01) ==
LOC: LBO 04:00
PROVIDERS: PCP Family Medicine; Visit Provider Nurse Practitioner Gerontology
DX: C61 Malignant neoplasm of prostate (principal); E78.5 Hyperlipidemia, unspecified; R73.9 Hyperglycemia, unspecified
CPT/HCPCS: 36415; 80061; 82947; 84153

== ENCOUNTER → 2023-04-11 12:34 | Outpatient (BNVA) | payer MEDICARE, SELFPAY | PROVIDERS: PCP Family Medicine; Visit Provider Nurse Practitioner Gerontology | DX: C61 Malignant neoplasm of prostate (principal); N40.1 Benign prostatic hyperplasia with lower urinary tract symptoms; R33.8 Other retention of urine | CPT/HCPCS: 99214 ==

== ENCOUNTER 2023-10-03 02:40 | Outpatient (CLI) | payer MEDICARE, SELFPAY ==
[2023-10-11 16:05] LABS: PSA, Diagnostic 1.7 ng/ml (0-6.5)
== END 2023-10-03 02:41 | disposition home or self-care (01) ==
LOC: LBO 02:41
PROVIDERS: Nurse Practitioner Gerontology; PCP Family Medicine; Visit Provider Family Medicine
DX: C61 Malignant neoplasm of prostate (principal); N40.1 Benign prostatic hyperplasia with lower urinary tract symptoms; R33.8 Other retention of urine
CPT/HCPCS: 36415; 84153

== ENCOUNTER 2024-04-09 01:44 | Outpatient (CLI) | payer MEDICARE, SELFPAY ==
[2024-04-09 08:40] LABS: Calculated LDL 141 mg/dL (<100); Cholesterol 214 mg/dL (<200); Glucose 94 mg/dL (74-106); HDL Cholesterol 64 mg/dL (40-60); Triglyceride 46 mg/dL (<150)
[2024-04-09 18:00] LABS: PSA, Diagnostic 1.3 ng/mL (<=6.5)
[2024-04-10 10:39] LABS: HBs Antibody, Quant <3.1 mIU/mL (See Note); Hep B Surface Ab Negative (See Note); Hepatitis B Core Antibody Negative (Negative); Hepatitis B Surface Antigen Negative (Negative)
== END 2024-04-09 01:45 | disposition home or self-care (01) ==
LOC: LBO 01:45
PROVIDERS: PCP Family Medicine; Visit Provider Nurse Practitioner Gerontology
DX: C61 Malignant neoplasm of prostate (principal); E78.5 Hyperlipidemia, unspecified; R73.9 Hyperglycemia, unspecified; Z11.59 Encounter for screening for other viral diseases
CPT/HCPCS: 36415; 80061; 82947; 86704; 86706; 87340; 84153

== ENCOUNTER → 2024-04-16 12:36 | Outpatient (BNVA) | payer MEDICARE, SELFPAY | PROVIDERS: PCP Family Medicine; Visit Provider Nurse Practitioner Gerontology | DX: C61 Malignant neoplasm of prostate (principal); N40.1 Benign prostatic hyperplasia with lower urinary tract symptoms; R33.8 Other retention of urine | CPT/HCPCS: 99213 ==

== ENCOUNTER 2024-10-16 02:43 | Outpatient (CLI) | payer MEDICARE, SELFPAY ==
[2024-10-16 19:20] LABS: PSA, Diagnostic 1.4 ng/mL (<=6.5)
== END 2024-10-16 02:44 | disposition home or self-care (01) ==
PROVIDERS: PCP Family Medicine; Visit Provider Nurse Practitioner Gerontology
DX: C61 Malignant neoplasm of prostate (principal)
CPT/HCPCS: 36415; 84153

== ENCOUNTER 2025-04-08 05:06 | Outpatient (CLI) | payer MEDICARE, SELFPAY ==
[2025-04-09 16:52] LABS: Lab Add On Test DONE
[2025-04-09 17:20] LABS: Calculated LDL 131 mg/dL (<100); Cholesterol 203 mg/dL (<200); HDL Cholesterol 63 mg/dL (>or=40); Triglyceride 48 mg/dL (<150)
== END 2025-04-08 05:07 | disposition home or self-care (01) ==
LOC: LBO 05:06
PROVIDERS: PCP Family Medicine; Visit Provider Nurse Practitioner Gerontology
DX: C61 Malignant neoplasm of prostate (principal); E78.5 Hyperlipidemia, unspecified
CPT/HCPCS: 36415; 80061; 84153

== ENCOUNTER → 2025-04-15 12:45 | Outpatient (BNVA) | payer MEDICARE, SELFPAY | PROVIDERS: PCP Family Medicine; Visit Provider Nurse Practitioner Gerontology | DX: C61 Malignant neoplasm of prostate (principal); N40.1 Benign prostatic hyperplasia with lower urinary tract symptoms; R33.8 Other retention of urine | CPT/HCPCS: 99213 ==

== ENCOUNTER 2025-10-13 01:35 | Outpatient (CLI) | payer MEDICARE, SELFPAY | END 2025-10-13 01:36 | disposition home or self-care (01) | LOC: LBO 01:35 | PROVIDERS: PCP Family Medicine; Visit Provider Nurse Practitioner Gerontology | DX: C61 Malignant neoplasm of prostate (principal) | CPT/HCPCS: 36415; 84153 ==